=== PATIENT | female | born 1980 | race Caucasian/White ===

== ENCOUNTER 2021-07-01 09:46 | Emergency (ER) | payer OTHER, SELFPAY ==
--- NOTE | ~2021-07-01 | XR_ITS ---
EXAMINATION: XR chest 2V DATE: 07/01/2021 14:04 INDICATION: Shortness of breath TECHNIQUE: AP and lateral views of the chest are obtained. COMPARISON: None available FINDINGS: The lungs are free of acute opacities. There is no pleural effusion or pneumothorax. The ca rdiomediastinal silhouette is normal. There is mild thoracic spondylosis. IMPRESSION: 1. No acute cardiopulmonary abnormality. Reviewed, dictated and finalized at location F.
--- NOTE | ~2021-07-01 | US_ITS ---
EXAMINATION: US venous doppler [facility] DATE: 07/01/2021 14:05 INDICATION: Bilateral lower limb swelling TECHNIQUE: Keene scale images without and with compression and Doppler images of the bilateral lower e xtremity veins were obtained. COMPARISON: None FINDINGS: The bilateral peroneal and posterior tibial veins are not well visualized due to body habit us. The right common femoral vein, profunda femoral vein, femoral vein, popliteal vein, peroneal trunk, p osterior tibial veins, and greater saphenous vein are patent. The left common femoral vein, profunda femoral vein, femoral vein, popliteal vein, peroneal trunk, po sterior tibial veins, and greater saphenous vein are patent. IMPRESSION: 1. Patent bilateral lower extremity veins. No evidence of deep venous thrombosis. Bilateral posterior tibial and peroneal veins not well visualized due to body habitus. Reviewed, dictated and finalized at location F. IMPRESSION: 1. Patent bilateral lower extremity veins. No evidence of deep venous thrombosi s. Bilateral posterior tibial and peroneal veins not well visualized due to bod y habitus.
[2021-07-01 09:57] VITALS: BP 133/82; PULSE 119; RESP 20; TEMP 36.7; O2SAT 100
[2021-07-01 11:08] VITALS: BP 136/80; PULSE 99; RESP 16; TEMP 36.8; O2SAT 99
[2021-07-01 12:00] VITALS: BP 133/74; PULSE 94; RESP 18; TEMP 36.8; O2SAT 96
[2021-07-01 13:00] VITALS: BP 138/78; PULSE 96; RESP 16; O2SAT 97
[2021-07-01 13:21] LABS: Basophils Absolute Auto 0.1 K/mm3 (0.0-0.1); Basophils Percent Auto 0.5 % (0.2-1.2); Eosinophils Absolute Auto 0.2 K/mm3 (0-0.3); Eosinophils Percent Auto 1.7 % (0-4.4); Hematocrit 33.5 % (37.0-47.0); Hemoglobin 10.5 g/dL (12.0-15.0); Immature Granulocyte Absolute 0.03 K/mm3 (0.00-0.031); Immature Granulocyte Percent A 0.3 % (0-0.5); Lymphocytes Absolute Auto 2.07 K/mm3 (0.9-3.2); Lymphocytes Percent Auto 21.1 % (18.3-44.2); Mean Corpuscular HGB Conc 31.3 g/dl (32-36); Mean Corpuscular Hemoglobin 26.6 pg (26-34); Mean Platelet Volume 9.8 fl (7.4-10.4); Neutrophils Absolute Auto 6.5 K/mm3 (1.3-6.7); Neutrophils Percent Auto 66.4 % (45.5-73.1); Platelet Count Result 348 k/mm3 (150-375); Red Blood Count 3.94 M/mm3 (4.2-5.4); Red Cell Distribution Width 16.4 % (11.5-14.5); White Blood Count 9.8 K/mm3 (4.5-10.0)
[2021-07-01 13:33] LABS: Anion Gap 4 mmol/L (8-16); Blood Urea Nitrogen 10 mg/dL (7-17); Calcium 8.6 mg/dL (8.4-10.2); Carbon Dioxide 29 mmol/L (22-30); Chloride 103 mmol/L (98-107); Estimated CRCL calculation 133 ml/min; Estimated Glomerular Filt Rate > 60; Glucose 110 mg/dL (65-110); Potassium 4.1 mmol/L (3.4-5.0); Sodium 136 mmol/L (137-145)
[2021-07-01 13:42] LABS: NT Pro B Type Natriuretic Pept 421 pg/mL (5-100)
[2021-07-01 14:00] VITALS: BP 132/78; PULSE 94; RESP 16; TEMP 36.7; O2SAT 97
--- NOTE | 2021-07-01 14:24 | ED.LOWEXIN ---
HPI - Extremity Injury (Lower) General Chief Complaint: Extremity Injury, Lower Stated Complaint: legs are stiff Time Seen by Provider: 07/01/21 12:01 History of Present Illness HPI Narrative: Patient is a 40-year-old female who presents ER with reports of sunburn to her legs. This occurred 5 days ago. She then subsequently developed blisters which have started to pop and bleed. She has some additional blisters down by her ankles. She reports she is outside for several hours. She has no chest pain or chest. No difficulty breathing. Patient does have edema to the feet that she endorses is chronic. She has additional sunburn to her neck and hands but they are not blistered. She denies any itching or burning. Denies orthopnea. Related Data Allergies Allergy/AdvReac Type Severity Reaction Status Date / Time No Known Allergies Allergy Unverified 08/05/16 13:15 Review of Systems Review of Systems: All systems reviewed & are unremarkable except as noted in HPI and below Constitutional: Constitutional: Denies chills, Denies fever(s) and Denies weakness ENT: Denies nasal congestion and Denies sore throat Cardiovascular: Cardiovascular: Denies chest pain, Denies rapid heart rate and Denies radiating jaw, neck or arm pain Respiratory: Respiratory: Denies cough, Denies dyspnea and Denies wheezing Gastrointestinal: Gastrointestinal: Denies nausea and Denies vomiting Integumentary/Breasts: Comments: Sunburn with blistering. [facility] Past Medical History Medical History (Updated 07/01/21 @ 15:09 by Jason Rodriguez MD) Healthy female adult Surgical History Surgical History (Updated 07/01/21 @ 14:26 by Jason Rodriguez MD) History of section Social History Social History (Updated 07/01/21 @ 14:26 by Jason Rodriguez MD) Smoking status: Never smoker Exam Narrative: GENERAL: Chronically ill-appearing and overweight, and in no acute distress. HEAD: Normocephalic, atraumatic. ENT: Mucous membranes moist. CHEST: Clear to auscultation. No respiratory distress. HEART: Regular rate and rhythm. Normal peripheral pulses. ABDOMEN: Soft, nontender, nondistended. EXTREMITIES: Normal range of motion. No edema. SKIN: Warm, dry, linear blisters around the ankles near where the socks were. Crusted lesion to the left thigh medially where blisters have ruptured. No surrounding cellulitis. Sunburn noted to the posterior neck, the dorsums of the hands, and the thighs and shins bilaterally. NEURO: No focal deficits. Alert and oriented x3. PSYCH: Normal mood and affect. Course Course Emergency Course: Labs unremarkable. Discharge home. Discussed wound care. Discussed aloe vera for any burning discomfort. Vital Signs Vital signs: Vital Signs Temperature 98.0 F 07/01/21 09:57 Pulse Rate 119 H 07/01/21 09:57 Respiratory Rate 20 07/01/21 09:57 Blood Pressure 133/82 07/01/21 09:57 Pulse Oximetry 100 07/01/21 09:57 Temperature 98.3 F 07/01/21 11:08 Pulse Rate 99 07/01/21 11:08 Respiratory Rate 16 07/01/21 11:08 Blood Pressure 136/80 07/01/21 11:08 Pulse Oximetry 99 07/01/21 11:08 MDM - Extremity Injury (Lower) Lab Data Result diagrams: 07/01/21 13:15 07/01/21 13:16 Labs: Lab Results 07/01/21 07/01/21 Range/Units 13:15 13:16 WBC 9.8 (4.5-10.0) K/mm3 RBC 3.94 L (4.2-5.4) M/mm3 Hgb 10.5 L (12.0-15.0) g/dL Hct 33.5 L (37.0-47.0) % MCV 85.0 (80-100) fl MCH 26.6 (26-34) pg MCHC 31.3 L (32-36) g/dl RDW 16.4 H (11.5-14.5) % Plt Count 348 (150-375) k/mm3 MPV 9.8 (7.4-10.4) fl Immature Gran % (Auto) 0.3 (0-0.5) % Neut % (Auto) 66.4 (45.5-73.1) % Lymph % (Auto) 21.1 (18.3-44.2) % [place] % (Auto) 10.0 H (2.6-8.5) % Eos % (Auto) 1.7 (0-4.4) % Baso % (Auto) 0.5 (0.2-1.2) % Lymph # (Auto) 2.07 (0.9-3.2) K/mm3 [place] # (Auto) 1.0 H (0.1-0.6) K/mm3 Eos # (Auto) 0.2 (0-0.3
[2021-07-01 15:00] VITALS: BP 134/80; PULSE 94; RESP 16; TEMP 36.6; O2SAT 98
--- NOTE | 2021-07-01 16:04 | PCCCNOTE ---
Requested by bedside RN to meet with patient as she is discharged but not leaving her room and states that the hotel she was staying at had advised that she could not come back. Met with patient in her room she was slowly putting socks on. Asked a patient about the hotel and patient states that she will find somewhere to stay, asked about transportation, patient states that she will use the bus. Asked if she has money and she states that she has money for the bus. Patient does not provide any additional information only requests underwear. systems development manager gets mesh underwear and this was provided to the patient. Bus pamphlets provided to patient and advised that next bus departing from [place] is showing for 4:48. Bedside RN wheeling patient to bus stop.
== END 2021-07-01 15:37 | disposition home or self-care (01) ==
PROVIDERS: Emergency Provider Emergency Medicine
DX: L55.1 Sunburn of second degree (principal)
CPT/HCPCS: 36415; 71046; 80048; 83880; 85025; 93970; 99284

== ENCOUNTER 2021-07-01 21:55 | Emergency (ER) | payer OTHER, SELFPAY ==
[2021-07-01 21:58] VITALS: BP 119/74; PULSE 117; RESP 16; TEMP 36.6; O2SAT 99
--- NOTE | 2021-07-01 22:14 | ED.SKABFB ---
HPI - Skin/Abscess/Foreign Bdy General Chief complaint: Extremity Problem,Nontraumatic Stated complaint: sunburn to legs Time Seen by Provider: 07/01/21 22:05 Source: patient Mode of arrival: ambulatory History of Present Illness HPI narrative: 40-year-old female 3 presents today with complaints of lower extremity discomfort. Patient seen previously worked up and discharged with diagnosis of sunburn. Patient says she waited for the bus but they would not let her on. Patient states her legs still hurt but has not taken any medication. Patient states she was waiting for the bus but the bus would not take her to where she wanted to go. Patient rates pain 4 out of a 10. Left thigh with noted open area approx 5cm by 5cm and right thigh area approx 2cm x 2cm with serosanguineous drainage noted. Appears to be where a blisters popped from sunburn. Intact blisters noted to lower legs. Related Data Allergies Allergy/AdvReac Type Severity Reaction Status Date / Time No Known Allergies Allergy Unverified 08/05/16 13:15 Review of Systems Review of Systems: CONSTITUTIONAL: Denies fever, chills, or sweats. EYES: Denies visual changes, redness, or discharge. ENT: Denies rhinorrhea, congestion, sore throat, or otalgia. CARDIOVASCULAR: Denies chest pain, palpitations, or edema. RESPIRATORY: Denies cough or dyspnea. GASTROINTESTINAL: Denies abdominal pain, nausea, vomiting, or diarrhea. GENITOURINARY: Denies dysuria or hematuria. SKIN: Sunburn with broken blisters and intact blisters to bilateral legs. Denies rash or itching. MUSCULOSKELETAL: Leg pain. Denies back pain, joint pain, or myalgia. NEUROLOGIC: Denies headache, numbness, dizziness, or weakness. PSYCHIATRIC: Denies anxiety or depression. PMFSH Past Medical History Medical History Healthy female adult Surgical History Surgical History History of section Social History Social History Smoking status: Never smoker Exam Narrative: GENERAL: Well-appearing, well-nourished, and in no acute distress. HEAD: Normocephalic, atraumatic. EYES: PERRLA and EOMI. ENT: Nares clear, no rhinorrhea or epistaxis. Mucous membranes moist. Oropharynx without tonsillar hypertrophy exudate or other lesions. Bilateral TMs pearly [place] nonbulging NECK: Supple. No adenopathy or masses. No carotid bruits or JVD CHEST: Clear to auscultation. No respiratory distress. No wheezes rales or rhonchi HEART: Regular rate and rhythm. No murmur heard. Normal peripheral pulses. ABDOMEN: Soft, nontender, nondistended, normal active bowel sounds. EXTREMITIES: Normal range of motion. No edema. SKIN: Bilateral lower extremities with sunburn noted. Intact blisters noted to bilateral lower legs with weeping blisters noted above bilateral knees. Left thigh with noted open area [id number] and right thigh open area 2cm .2cm. Looks as if blisters ruptured from sunburn. No bleeding noted. NEURO: No focal deficits. Alert and oriented x3. PSYCH: Normal mood and affect. Course Course Emergency Course: Patient has not taken any pain relievers at this time. Discussed care with patient. Will provide ibuprofen 800 mg p.o. at this time. Legs to be washed, Adaptic or Vaseline gauze put on open areas, with Kerlix on top. Patient to be discharged after that. Patient in agreement with plan of care. Vital Signs Vital signs: Vital Signs Temperature 36.6 C 07/01/21 21:58 Pulse Rate 117 H 07/01/21 21:58 Respiratory Rate 16 07/01/21 21:58 Blood Pressure 119/74 07/01/21 21:58 Pulse Oximetry 99 07/01/21 21:58 Temperature 36.6 C 07/01/21 21:58 Pulse Rate 117 H 07/01/21 21:58 Respiratory Rate 16 07/01/21 21:58 Blood Pressure 119/74 07/01/21 21:58 Pulse Oximetry 99 07/01/21 21:58 MDM - Skin/Abscess/Foreign Bdy Differen
[2021-07-01] MEDS: IBUPROFEN 400 MG TABLET 800 MG PO (22:57)
[2021-07-01 23:22] VITALS: BP 110/67; PULSE 98; RESP 18; O2SAT 100
== END 2021-07-01 23:23 | disposition home or self-care (01) ==
LOC: ANHED 22:42
PROVIDERS: Emergency Provider Nurse Practitioner Family
DX: L55.1 Sunburn of second degree (principal)
CPT/HCPCS: 16020; 36415; 71046; 80048; 83880; 85025; 93970; 99282; 99284; A9270